=== PATIENT | male | born 1955 | race Two or more races ===

== ENCOUNTER → 2022-12-13 10:41 | Outpatient (REF) | payer OTHER, SELFPAY ==
--- NOTE | 2022-12-13 10:56 | HM_ITS ---
Conclusion: 1. Patient was monitored for total period of 23 hours 2. Baseline was normal sinus rhythm with average heart of 72 beats per minute 3. No significant pauses or bradycardia noted 4. Occasional PVCs with total burden of 0.15% 5. No patient reported events MTDD
== END ==
LOC: HO.CARD 10:41
PROVIDERS: PCP Internal Medicine; Visit Provider Internal Medicine
DX: I44.0 Atrioventricular block, first degree (principal); I49.8 Other specified cardiac arrhythmias
CPT/HCPCS: 93225

== ENCOUNTER 2023-03-05 07:45 | Inpatient (IN) | payer OTHER, SELFPAY ==
--- NOTE | ~2023-03-05 | XR_ITS ---
EXAMINATION: XR ABDOMEN KUB CLINICAL INDICATION: Colon distention COMPARISON: 03/05/2023 CT scan TECHNIQUE: AP view of the abdomen. FINDINGS: The bowel gas pattern is normal with no evidence of ileus or obstruction. No unusual soft tissue calcifications are noted. The bones are unremarkable. XR/XR KUB IMPRESSION: Unremarkable examination.
--- NOTE | ~2023-03-05 | CT_ITS ---
EXAMINATION: CT ABDOMEN AND PELVIS WITHOUT CONTRAST CLINICAL INFORMATION: Abdominal pain. COMPARISON: None available. TECHNIQUE: Multidetector volumetric imaging was performed from the superior aspect of the liver through the pubic symphysis. Sagittal and coronal reformatted images were obtained on the technologist's workstation. This CT examination was performed using dose optimization techniques as appropriate, variously including the following: *Automated exposure control *Adjustment of mA and/or kV according to patient size (this includes techniques or standardized protocols for targeted exams where dose is matched to indication/reason for exam; i.e. extremities or head) *Use of iterative reconstruction technique DLP: 409 mGy-cm FINDINGS: LUNG BASES: Mild bibasilar atelectasis. No pericardial or pleural effusion. LIVER, GALLBLADDER, AND BILIARY TREE: The liver is normal in size, shape, and attenuation. No focal hepatic lesion or biliary ductal dilatation is present. The gallbladder is unremarkable with no evidence of radiopaque gallstones, gallbladder wall thickening, or obvious pericholecystic inflammatory changes. PANCREAS: Unremarkable. No acute inflammatory changes. SPLEEN: Unremarkable. ADRENAL GLANDS: Unremarkable. KIDNEYS AND URETERS: The kidneys are normal in size, shape, and attenuation. No hydronephrosis, hydroureter, or calculi seen. Mild bilateral perinephric stranding. Right renal 1.3 cm cyst. No follow up recommended. BLADDER: Partially distended, appearing unremarkable. GASTROINTESTINAL TRACT: There is prominent wall thickening of the splenic flexure, descending colon. There also appears to be wall thickening or bowel wall prominence related to nondistention of the sigmoid colon extending to the rectosigmoid region. There is inflammatory changes adjacent to the descending colon and to lesser degree associated with the sigmoid colon. Differential considerations include colitis. Mass lesion, neoplasm cannot be excluded. Proximal to the area of large bowel wall thickening, there is dilatation of the ascending colon and transverse colon, which could reflect component of evolving or developing bowel obstruction. No dilated small bowel loops are seen. Stomach is partially distended, limiting evaluation. ABDOMINAL WALL: No significant hernia is appreciated. LYMPH NODES: No bulky lymphadenopathy seen. VASCULAR: Unremarkable. PELVIC VISCERA: Unremarkable. OSSEOUS STRUCTURES: Multilevel degeneration in the spine. CT/CT abdomen pelvis wo IV con IMPRESSION: 1. Prominent wall thickening of the splenic flexure and descending colon. There is wall thickening to lesser degree of the sigmoid colon. Differential considerations include colitis. Neoplastic etiology, especially in the region of the splenic flexure and descending colon cannot be excluded. Clinically correlate. Consider workup/followup endoscopy. If this is not obtained, recommend followup CT to ensure resolution of these findings. 2. There is dilatation of the large colon proximal to the splenic flexure, which could reflect evolving/developing bowel obstruction. Recommend ongoing radiographic followup. Fleischner guidelines were followed.
[2023-03-05 07:50] VITALS: BP 164/103; PULSE 100; RESP 19; TEMP 36.6; O2SAT 99; BMI 25.8
[2023-03-05 08:09] LABS: Basophils Percent Auto 0.1 % (0-2); Eosinophils Percent Auto 0.1 % (0-4); Hematocrit 41.7 % (42.0-52.0); Hemoglobin 13.5 g/dl (14.0-18.0); Imm Gran Abs Auto 0.07 X10*3/uL (0.00-0.03); Imm Gran Pct Auto 0.4 % (0.0-0.4); Lymphocytes Absolute Auto 1.4 X10*3/uL (1.2-4.9); Lymphocytes Percent Auto 8.3 % (20-40); MANUAL DIFF FLAG SCAN; Mean Corpuscular HGB Conc 32.4 g/dl (31.0-36.0); Mean Corpuscular Hemoglobin 24.7 pg (27.0-33.0); Mean Corpuscular Volume 76.4 fL (80.0-98.0); Mean Platelet Volume 10.2 fL (9.4-12.4); Monocytes Absolute Auto 1.7 X10*3/uL (0.1-1.2); Monocytes Percent Auto 9.9 % (2-11); Neutrophils Percent Auto 81.2 % (45-73); Platelet Count 239 X10*3/uL (160-400); Red Blood Count 5.46 X10*6/uL (4.60-5.80); Red Cell Distribution Width 14.8 % (11.0-16.0); SCAN SMEAR FLAG 1; White Blood Count 17.3 X10*3/uL (4.8-10.8)
--- NOTE | 2023-03-05 08:17 | ECG_ITS ---
Test Reason : CHEST DISCOMFORT Blood Pressure : / mmHG Vent. Rate : 093 BPM Atrial Rate : 093 BPM P-R Int : 166 ms QRS Dur : 090 ms QT Int : 348 ms P-R-T Axes : 074 071 050 degrees QTc Int : 432 ms Normal sinus rhythm Normal ECG No significant changes when compared with the previous EKG of 19 jun 2003 Referred By: Екатерина Mehta Electronically Signed By:SAVITA MONROY
--- NOTE | 2023-03-05 08:25 | PC.NURSE ---
pt to ct scan, labs previously drawn in triage
[2023-03-05 08:29] LABS: SLIDE REVIEW VERIFIED
[2023-03-05 08:31] LABS: Alanine Aminotransferase 40 U/L (0-40); Albumin Level 4.5 g/dL (3.5-5.0); Alkaline Phosphatase 46 U/L (39-117); Anion Gap 15 (12-20); Aspartate Amino Transferase 28 U/L (5-37); Bilirubin Direct 0.2 mg/dL (0.0-0.5); Bilirubin Total 0.8 mg/dL (0.0-1.0); Blood Urea Nitrogen 16 mg/dL (9-16); Calcium 9.7 mg/dL (8.4-10.2); Carbon Dioxide 22 mmol/L (22-29); Chloride 106 mmol/L (96-108); Creatinine Clr Calc Pharmacy 60.5; Estimated Glomerular Filt Rate > 60; Glucose Random 147 mg/dL (60-115); Lipase 9 U/L (8-78); Potassium 3.3 mmol/L (3.3-5.1); Sodium 140 mmol/L (135-145); Total Protein 8.1 g/dL (6.5-8.0)
--- NOTE | 2023-03-05 08:40 | ED.ABDPAIN ---
HPI - Abdominal Pain General Chief Complaint: Abdominal Pain Stated Complaint: abd pain Time Seen by Provider: 03/05/23 08:17 Source: patient Mode of arrival: ambulatory History of Present Illness HPI narrative: 67-year-old male who arrives with persistent and worsening pain in the abdomen since yesterday at approximately 14:00 with nausea but denies any vomiting, states he has been passing gas him when he has a bowel movement that is just watery. He reports subjective fevers and diaphoresis and states he last urinated this morning. Related Data Allergies Allergy/AdvReac Type Severity Reaction Status Date / Time penicillin V Allergy Unknown Unknown Verified 03/05/23 07:49 Penicillins [PENICILLINS] Allergy Unknown UNKNOWN Verified 03/05/23 07:49 REACTION, CHILDHOOD ALLERGY Review of Systems Review of Systems Pertinent positives and negatives as stated in [facility] Past Medical History Source: nursing notes reviewed Medical History (Updated 03/05/23 @ 10:21 by Екатерина Mehta MD) High cholesterol Hypertension Social History Social History Alcohol intake: current Alcohol intake frequency: holidays/special occasions only Alcohol type: beer and hard liquor Smoked in Last 30 Days: Yes Use of substances other than those prescribed or required for medical reasons: Yes Substance Use Type: Marijuana Substance Use Frequency: Occasionally Advance Directives: No Advance Directives Information Provided: Yes Physical Exam ED Vital Signs: Vital Signs - 24 hr 03/05/23 07:50 Temperature 98 F Pulse Rate 100 Respiratory Rate 19 Blood Pressure 164/103 H Pulse Oximetry 99 Oxygen Delivery Method Room Air BMI result Body Mass Index 25.8 VITAL SIGNS: Reviewed. GENERAL: Well developed, well nourished, in no acute distress. HEAD: Normocephalic/atraumatic EYES: PERRLA, EOMI EARS: Ext canals without abnormality NOSE: Nares patent bilateral OROPHARYNX: no oral lesions noted, posterior pharynx clear NECK: Supple, no adenopathy LUNGS: Normal breath sounds. No adventitious sounds or accessory muscle use. SpO2<99> CARDIOVASCULAR: Regular rate and rhythm without noted murmurs ABDOMEN: Soft, diffusely tender, distended with hypoactive bowel sounds. MUSCULOSKELETAL: No tenderness, deformities, or effusions noted on gross inspection. EXTREMITIES: No cyanosis, clubbing or edema. SKIN: Inspection of the skin reveals no rashes NEUROLOGIC: Alert and oriented x 4. Strength and sensation to light touch were grossly intact x 4. Medical Decision Making Medical Decision Making [facility] Narrative: 0815: 67-year-old male who arrives with concerns of SBO, diverticulitis, perforation. Patient did receive lactic acid/blood culture/antibiotics After review of all investigations and imaging studies patient will be admitted with presumptive colitis but there is some concern for possible pathology at the splenic flexure, I did discuss the case with Gastroenterology, I also discussed case with inpatient hospitalist who accepts admission. Patient has received antibiotics, pain medications as well as mild fluid hydration. Differential Diagnosis Please see the discussion above Consult Healthcare Provider Management of the patient was discussed with: Hospitalist and Blending Coordinator Lab Data Please see the discussion above 03/05/23 07:57 03/05/23 07:57 Labs: Lab Results 03/05/23 03/05/23 03/05/23 Range/Units 07:57 07:57 09:04 WBC 17.3 H (4.8-10.8) X10*3/uL RBC 5.46 (4.60-5.80) X10*6/uL Hgb 13.5 L (14.0-18.0) g/dl Hct 41.7 L (42.0-52.0) % MCV 76.4 L (80.0-98.0) fL MCH 24.7 L (27.0-33.0) pg MCHC 32.4 (31.0-36.0) g/dl RDW 14.8 (11.0-16.0) % Plt Count 239 (160-400) X10*3/uL MPV 10.2 (9.4-12.4) fL Immature Gran % (Auto) 0.4 (0.0-0.4) % Neut % (Auto) 81.2 H (45-73) % Lymph % (Auto) 8.3 L (20-40) % [place] % (Auto) 9.9 (2-11) % Eos % (Auto) 0.1 (0-4) % Baso % (Auto) 0.1 (0-2) % Lymph # (Auto) 1.4 (1.2-4.9) X10*3/uL [place] # (Auto) 1.7 H (0.1-1.2) X10*3/uL Eos # (Auto) 0.0 (0.0-0.4) X10*3/uL Baso # (Auto) 0.0 (0.0-0.2) X10*3/uL Abs Immat Gran (auto) 0.07 H (0.00-0.03) X10*3/uL Absolute Neuts (auto) 14.0 H (2.0-8.3) x10*3/uL Absolute Nucleated RBC 0.000 (0.0-0.012) X10*3/uL Nucleated RBC % (auto) 0.0 (0.0-0.2) /100WBC Smear Tech's Comments VERIFIED Sodium 140 (135-145) mmol/L Potassium 3.3 (3.3-5.1) mmol/L Chloride 106 (96-108) mmol/L Carbon Dioxide 22 (22-29) mmol/L Anion Gap 15 (12-20) BUN 16 (9-16) mg/dL Creatinine 1.03 (0.5-1.4) mg/dL Estim Creat Clear Calc 60.5 Estimated GFR > 60 Random Glucose 147 H (60-115) mg/dL Lactic Acid 1.1 (0.5-2.0) mmol/L Calcium 9.7 (8.4-10.2) mg/dL Total Bilirubin 0.8 (0.0-1.0) mg/dL Direct Bilirubin 0.2 (0.0-0.5) mg/dL AST 28 (5-37) U/L ALT 40 (0-40) U/L Alkaline Phosphatase 46 (39-117) U/L Troponin I High Sens (<3.5-35.0) ng/L Total Protein 8.1 H (6.5-8.0) g/dL Albumin 4.5 (3.5-5.0) g/dL Lipase 9 (8-78) U/L 03/05/23 Range/Units 09:06 WBC (4.8-10.8) X10*3/uL RBC (4.60-5.80) X10*6/uL Hgb (14.0-18.0) g/dl Hct (42.0-52.0) % MCV (80.0-98.0) fL MCH (27.0-33.0) pg MCHC (31.0-36.0) g/dl RDW (11.0-16.0) % Plt Count (160-400) X10*3/uL MPV (9.4-12.4) fL Immature Gran % (Auto) (0.0-0.4) % Neut % (Auto) (45-73) % Lymph % (Auto) (20-40) % [place] % (Auto) (2-11) % Eos % (Auto) (0-4) % Baso % (Auto) (0-2) % Lymph # (Auto) (1.2-4.9) X10*3/uL [place] # (Auto) (0.1-1.2) X10*3/uL Eos # (Auto) (0.0-0.4) X10*3/uL Baso # (Auto) (0.0-0.2) X10*3/uL Abs Immat Gran (auto) (0.00-0.03) X10*3/uL Absolute Neuts (auto) (2.0-8.3) x10*3/uL Absolute Nucleated RBC (0.0-0.012) X10*3/uL Nucleated RBC % (auto) (0.0-0.2) /100WBC Smear Tech's Comments Sodium (135-145) mmol/L Potassium (3.3-5.1) mmol/L Chloride (96-108) mmol/L Carbon Dioxide (22-29) mmol/L Anion Gap (12-20) BUN (9-16) mg/dL Creatinine (0.5-1.4) mg/dL Estim Creat Clear Calc Estimated GFR Random Glucose (60-115) mg/dL Lactic Acid (0.5-2.0) mmol/L Calcium (8.4-10.2) mg/dL Total Bilirubin (0.0-1.0) mg/dL Direct Bilirubin (0.0-0.5) mg/dL AST (5-37) U/L ALT (0-40) U/L Alkaline Phosphatase (39-117) U/L Troponin I High Sens < 2.7 (<3.5-35.0) ng/L Total Protein (6.5-8.0) g/dL Albumin (3.5-5.0) g/dL Lipase (8-78) U/L Independent Interpretation I performed an independent interpretation of an: EKG Interpretation: Normal sinus rhythm, HR-93, no STEMI, CT/QRS/QTC is within normal limits. Radiology Impression Radiologist Impression: My interpretation is in agreement with radiology's impression Medications Administered Discontinued Medications Generic Name Dose Route Start Last Admin Trade Name Freq PRN Reason Stop Dose Admin Fentanyl 25 mcg 03/05/23 09:01 03/05/23 09:27 Fentanyl Citrate/Pf 100 Mcg/2 Ml Vial IVPUSH 03/05/23 09:02 25 mcg ONCE ONE Administration Protocol Ceftriaxone Sodium 1 gm/ 50 mls @ 100 mls/hr 03/05/23 08:38 03/05/23 09:58 Sodium Chloride IV 03/05/23 09:07 Infused ONCE ONE Infusion Sodium Chloride 500 mls @ 500 mls/hr 03/05/23 09:15 03/05/23 09:27 Ns IV 03/05/23 10:14 500 mls/hr .Q1H LEONIDES Administration Discharge Plan Discharge Clinical Impression: Colitis, Sepsis Patient Disposition: Admitted As Inpatient
[2023-03-05 09:24] LABS: Lactic Acid 1.1 mmol/L (0.5-2.0)
[2023-03-05] MEDS: 0.9 % Sodium Chloride 500 ML IV (09:27)
[2023-03-05] MEDS: fentaNYL citrate/PF 100 MCG/2 ML VIAL 25 MCG IVPUSH (09:27)
[2023-03-05] MEDS: cefTRIAXone sodium 1 GM in 0.9 % Sodium Chloride 50 ML IV (09:28)
[2023-03-05 09:55] LABS: Troponin-I High Sensitivity < 2.7 ng/L (<3.5-35.0)
--- NOTE | 2023-03-05 09:58 | PC.NURSE ---
patient a&ox3, iv inserted, labs drawn, ekg performed-nsr, vss, ivf hung per order, pt medicated per order, abd distended-painful upon palpation, + hypoactive bs, pt states his pain has decreased to 6/10 after being medicated for pain, call regalado within reach, pt npo, will continue to monitor.
[2023-03-05 10:00] VITALS: BP 154/95; PULSE 90; RESP 18; TEMP 36.4; O2SAT 98
[2023-03-05] MEDS: metroNIDAZOLE/NS 500 MG/100 ML PIGGYBACK 100 MG IV ×2 (10:29→19:52)
--- NOTE | 2023-03-05 10:29 | PC.NURSE ---
patient a&ox3, pt stating his abd pain has increased to 8/10, vss, iv abx running per order, will continue to monitor.
--- NOTE | 2023-03-05 11:03 | PM.GICN ---
History of Present Illness Data of Consult Service Date: 03/05/23 Requesting physician: Екатерина Mehta Primary Care Provider: Patricia Chance MD [facility] Reason for consult: abdominal pain, abnormal CT scan of the colon 67 YM with hypertension and hypercholesterolaemia came to [facility] ED on 03/05/2023 with one day history of worsening abdominal pain. Pt reports he had no pain when he woke up. He took a shower and ate something. He noted abdominal pain at approximately 14:00 (? precipitated by eating) Pain is associated with subjective fevers, sweating, nausea and vomiting. Pt states he has been passing gas and has been having multiple small watery and non-bloody bowel movements. Pt denies recent travel or antibiotic use. Pt denies smoking and drinks ETOH once a week. He is and lives with his and has 2 adult children. 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 LABS showed elevated WBC of 17.3 with a left shift, normal LFTs, lipase and lactic acid. Pt was started on IV antibiotics and admitted for further management. Stool studies ordered for C Diff and GI panel. Pt denies known family hx of IBD or colon cancer 03/05/[address] SCAN SHOWED: 1. Prominent wall thickening of the splenic flexure and descending colon. There is wall thickening to lesser degree of the sigmoid colon. Differential considerations include colitis. Neoplastic etiology, especially in the region of the splenic flexure and descending colon cannot be excluded. Clinically correlate. Consider workup/followup endoscopy. If this is not obtained, recommend followup CT to ensure resolution of these findings. ? 2. There is dilatation of the large colon proximal to the splenic flexure, which could reflect evolving/developing bowel obstruction. Recommend ongoing radiographic followup. ? PAST GI HISTORY BY REVIEW OF MEDICAL RECORDS: Pt has a history of malignant rectal polyp excised transanally in 2016. He had re-excision for wider margins thereafter. He had FU colonoscopies in [address] Syed which were unremarkable. Review of Systems Review of Systems: Pertinent positives and negatives as stated in HPI [facility] Past Medical History Medical History (Updated 03/14/23 @ 00:07 by Pb Daroberta) High cholesterol Hypertension Lump of scalp Social History Social History Household Members: Other Household Members Other:: nephew Housing: Apartment Do you presently have visiting nurse or other home services: No Alcohol intake: current Alcohol intake frequency: holidays/special occasions only Alcohol type: beer and hard liquor Patient Tobacco Use Status: Current someday Tobacco user Tobacco use type: Cigarette Cigarette Packs Per Day: 0 Cigarettes Per Day: 0 Years Smoked: 50 Second Hand Smoke Exposure: No Substance Use Type: Marijuana service: No Meds Allergies Allergy/AdvReac Type Severity Reaction Status Date / Time penicillin V Allergy Unknown Unknown Verified 03/05/23 07:49 Penicillins [PENICILLINS] Allergy Unknown UNKNOWN Verified 03/05/23 07:49 REACTION, CHILDHOOD ALLERGY Active Medications: Current Medications Pharmacy Consult (Consult Rx Perform Med Rec) 1 each MISCELLANE ONCE PRN PRN Reason: Consult order Home Medications Medication Instructions Recorded Confirmed Last Taken Type ergocalciferol (vitamin D2) 1,250 1,250 mcg PO THEODORE@0900 03/05/23 03/05/23 02/26/23 History mcg (50,000 unit) capsule hydrochlorothiazide 12.5 mg capsule 12.5 mg PO DAILY 03/05/23 03/05/23 03/05/23 History loratadine 10 mg tablet (Claritin) 10 mg PO DAILY PRN Allergy Symptoms 03/05/23 03/05/23 Unknown History rosuvastatin 20 mg tablet 20 mg PO BEDTIME 03/05/23 03/05/23 03/02/23 History Physical Exam Vital Signs: Vital Signs: Last Vital Signs Temp 97.6 F 03/05/23 10:00 Pulse 90 03/05/23 10:00 Resp 18 03/05/23 10:00 BP 154/95 H 03/05/23 10:00 Pulse Ox 98 03/05/23 10:00 O2 Del Method Room Air 03/05/23 10:00 BMI result Body Mass Index 25.8 Const: General: no acute distress and in distress (due to abdominal pain) Nutritional Appearance: overweight Orientation/consciousness: patient oriented x3 Limitations: no limitations HEENT: Head: Yes normal to inspection Ears: hearing grossly normal bilaterally Eyes: Sclerae: sclerae normal Pupils: Equal, round and reactive pupils present Neck: Neck: Yes normal visual inspection Chest: Chest palpation & inspection: normal inspection of the chest Resp: Effort & Inspection: normal respiratory effort Auscultation: clear to auscultation bilaterally Cardio: Palpation: normal PMI Rate: regular rate Rhythm: regular rhythm Heart sounds: S1 normal heart sound present, S2 normal heart sound present and no murmurs GI: Inspection: Yes distended Palpation (GI): Soft to palpation, Tenderness to palpation present (GI) (moderate diffuse abdominal tenderness) and No hepatosplenomegaly present Auscultation: normal bowel sounds Rectal Exam - Male: Yes deferred Skin: General skin exam: no rashes or lesions noted Neuro: General: patient oriented x3, gait normal and moves all extremities Cranial nerves: Yes Equal, round and reactive pupils present Psych: Appearance: grossly normal Mental Status: mental status grossly normal Results Labs 03/05/23 07:57 03/05/23 07:57 Labs: Short CBC 03/05/23 Range/Units 07:57 WBC 17.3 H (4.8-10.8) X10*3/uL Hgb 13.5 L (14.0-18.0) g/dl Hct 41.7 L (42.0-52.0) % Plt Count 239 (160-400) X10*3/uL BMP 03/05/23 07:57 Sodium 140 Potassium 3.3 Chloride 106 Carbon Dioxide 22 BUN 16 Creatinine 1.03 Calcium 9.7 Liver Function 03/05/23 Range/Units 07:57 Total Bilirubin 0.8 (0.0-1.0) mg/dL Direct Bilirubin 0.2 (0.0-0.5) mg/dL AST 28 (5-37) U/L ALT 40 (0-40) U/L Alkaline Phosphatase 46 (39-117) U/L Albumin 4.5 (3.5-5.0) g/dL Assessment and Plan (1) Colitis: Status: Resolved (2) Abnormal CT scan, colon: Status: Acute Plan 67 YM with hypertension, hypercholesterolaemia and a hx of rectal cancer admitted to [facility] on 03/05/2023 with one day history of worsening abdominal pain, nausea, vomiting and diarrhea. Pt states he has been passing gas and has been having multiple small watery and non-bloody bowel movements. Pt denies recent travel or antibiotic use. LABS showed elevated WBC of 17.3 with a left shift, normal LFTs, lipase and lactic acid. Pt was started on IV antibiotics and admitted for further management. Stool studies ordered for C Diff and GI panel. Abdominal CT scan showed prominent wall thickening of the splenic flexure, descending and sigmoid colon and dilatation of the large colon proximal to the splenic flexure, Above findings are likely due to infectious or ischemic colitis. IBD or colon cancer would be unlikely given acute onset of symptoms and negative colonoscopy 4 yrs ago. RECOMMENDATIONS: 1. Agree with keeping pt NPO with IVF and pain medications 2. Await results of stool studies. 3. KUB in the am to FU on colon distension 4. If pt has increased distension with recurrent nausea and vomiting, NG tube with intermittent low wall suction. Time Spent With Patient Time: Total time managing care of this patient today ____ minutes. Procedures Date of Service Date of Service: 03/23/23
--- NOTE | 2023-03-05 11:36 | PHA.MEDREC ---
Pharmacy Consult ? Medication Reconciliation Pharmacy has completed the medication reconciliation. Spoke to the patient to confirm meds. Utilized tile m[employer] services.
--- NOTE | 2023-03-05 13:41 | P.HPHOSP_ITS ---
History of Present Illness Date of Service: 03/05/23 Chief Complaint: abdominal pain. 67-year-old gentleman with past medical history significant for malignant rectal polyp , history of hypertension, hyperlipidemia came to [place] ED with 1 day history of worsening mid abdominal pain associated with nausea vomiting, subjective fevers, and small watery diarrhea, patient denies recent travels, no recent antibiotic use, no family member with similar symptoms, CT abdomen showed prominent wall thickening of the splenic flexure and descending colon differential included colitis,? neoplastic etiology in the region of splenic flexure and descending colon, dilatation of the large colon proximal to the splenic flexure which could reflect evolving or developing bowel obstruction, labs showed elevated WBC 17.3 with left shift, normal LFTs, normal lactic acid and lipase patient treated in the emergency room with IV fluids, IV ceftriaxone and Flagyl and now being admitted to [facility] with a diagnosis of abdominal pain likely infectious or ischemic colitis requiring Further evaluation and treatment. Review of Systems Review of Systems: General no headache no dizziness CVS no chest pain, no palpitation. Respiratory no cough no sob no urinary urgency, no frequency skin no rash musculoskeletal no joint pain PMFSH Medical History High cholesterol Hypertension Pertinent family history: no family history of colon cancer Social History Alcohol intake: current Alcohol intake frequency: holidays/special occasions only Alcohol type: beer and hard liquor Patient Tobacco Use Status: Never used Tobacco Smoked in Last 30 Days: Yes Use of substances other than those prescribed or required for medical reasons: Yes Substance Use Type: Marijuana Substance Use Frequency: Occasionally Advance Directives: No Advance Directives Information Provided: Yes Nutrition Risks: No Nutritional Risk Meds Allergies Allergy/AdvReac Type Severity Reaction Status Date / Time penicillin V Allergy Unknown Unknown Verified 03/05/23 07:49 Penicillins [PENICILLINS] Allergy Unknown UNKNOWN Verified 03/05/23 07:49 REACTION, CHILDHOOD ALLERGY Active Medications: Current Medications Loratadine (Loratadine 10 Mg Tablet) 10 mg PO DAILY PRN PRN Reason: Allergy Symptoms Pharmacy Consult (Consult Rx Perform Med Rec) 1 each MISCELLANE ONCE PRN PRN Reason: Consult order Home Medications Medication Instructions Recorded Confirmed Last Taken Type ergocalciferol (vitamin D2) 1,250 1,250 mcg PO THEODORE@0900 03/05/23 03/05/2308/10 History mcg (50,000 unit) capsule hydrochlorothiazide 12.5 mg capsule 12.5 mg PO DAILY 03/05/23 03/05/23 03/05/23 History loratadine 10 mg tablet (Claritin) 10 mg PO DAILY PRN Allergy Symptoms 03/05/23 03/05/23 Unknown History rosuvastatin 20 mg tablet 20 mg PO BEDTIME 03/05/23 03/05/23 03/02/23 History Physical Exam Vital Signs and Narrative: Vital Signs: Last Vital Signs Temp 97.6 F 03/05/23 10:00 Pulse 90 03/05/23 10:00 Resp 18 03/05/23 10:00 BP 154/95 H 03/05/23 10:00 Pulse Ox 98 03/05/23 10:00 O2 Del Method Room Air 03/05/23 10:00 BMI result Body Mass Index 25.8 Const: Other: General awake alert x3 in mild distress due to acute pain. anicteric sclera Neck supple no JVD. CVS regular rate rhythm, Respiratory lungs clear to auscultation, no respiratory distress, no wheeze, no rhonchi. Gastrointestinal abdomen soft, diffuse mid abdominal tenderness to palpation, bowel sounds audible, no guarding , no rigidity. Extremities no edema. Neuro nonfocal ,moving all 4 extremity speech clear. Skin no rash psych appropriate affect Results Labs 03/05/23 07:57 03/05/23 07:57 Labs: Laboratory Results - last 24 hr 03/05/23 03/05/23 03/05/23 07:57 07:57 09:04 MCV 76.4 L MCH 24.7 L MCHC 32.4 RDW 14.8 Plt Count 239 MPV 10.2 Immature Gran % (Auto) 0.4 Neut % (Auto) 81.2 H Lymph % (Auto) 8.3 L [place] % (Auto) 9.9 Eos % (Auto) 0.1 Baso % (Auto) 0.1 Lymph # (Auto) 1.4 [place] # (Auto) 1.7 H Eos # (Auto) 0.0 Baso # (Auto) 0.0 Abs Immat Gran (auto) 0.07 H Absolute Neuts (auto) 14.0 H Absolute Nucleated RBC 0.000 Nucleated RBC % (auto) 0.0 Smear Tech's Comments VERIFIED Anion Gap 15 Estim Creat Clear Calc 60.5 Estimated GFR > 60 Random Glucose 147 H Lactic Acid 1.1 Calcium 9.7 Total Bilirubin 0.8 Direct Bilirubin 0.2 AST 28 ALT 40 Alkaline Phosphatase 46 Troponin I High Sens Total Protein 8.1 H Albumin 4.5 Lipase 9 03/05/23 09:06 MCV MCH MCHC RDW Plt Count MPV Immature Gran % (Auto) Neut % (Auto) Lymph % (Auto) [place] % (Auto) Eos % (Auto) Baso % (Auto) Lymph # (Auto) [place] # (Auto) Eos # (Auto) Baso # (Auto) Abs Immat Gran (auto) Absolute Neuts (auto) Absolute Nucleated RBC Nucleated RBC % (auto) Smear Tech's Comments Anion Gap Estim Creat Clear Calc Estimated GFR Random Glucose Lactic Acid Calcium Total Bilirubin Direct Bilirubin AST ALT Alkaline Phosphatase Troponin I High Sens < 2.7 Total Protein Albumin Lipase Imaging Radiologist's Impressions: Impressions Abdomen/Pelvis CT 03/05/23 08:45 IMPRESSION: 1. Prominent wall thickening of the splenic flexure and descending colon. There is wall thickening to lesser degree of the sigmoid colon. Differential considerations include colitis. Neoplastic etiology, especially in the region of the splenic flexure and descending colon cannot be excluded. Clinically correlate. Consider workup/followup endoscopy. If this is not obtained, recommend followup CT to ensure resolution of these findings. 2. There is dilatation of the large colon proximal to the splenic flexure, which could reflect evolving/developing bowel obstruction. Recommend ongoing radiographic followup. Fleischner guidelines were followed. Assessment and Plan (1) Colitis: Status: Acute Plan 67-year-old gentleman with past medical history significant for malignant rectal polyp , history of hypertension, hyperlipidemia came to [place] ED with 1 day history of worsening mid abdominal pain associated with nausea vomiting, subjective fevers, and small watery diarrhea, noted to have tachycardia leukocytosis and possible colitis now being admitted to [facility] for continued monitoring and treatment. sepsis due to acute colitis likely infectious versus ischemic with diffuse mid abdominal pain admitted to medical floor , pulp drier.o./IV fluid/ IV ceftriaxone and IV Flagyl 500 q.8 hours IV analgesics/supportive care follow C diff and GI panel case discussed with powder press operator Dr. Camp if no improvement will obtain KUB at a.m. hypertension hold hydrochlorothiazide follow blood pressure hyperlipidemia on Crestor non formulary will hold DVT prophylaxis compression boots code status full code in my clinical judgment patient will require to need inpatient hospitalization due to acute colitis with concern for small-bowel obstruction on IV antibiotics and IV fluids need expert consultation. Time Spent With Patient Time: Total time managing care of this patient today ____ minutes. Quality Stroke Does the patient have a stroke diagnosis?: No VTE Prior VTE?: No VTE Risk Level:: Medical - moderate - high VTE Device Contraindication: Treatment Not Indicated VTE Drug Contraindication: N/A - Med Ordered
--- NOTE | 2023-03-05 13:57 | PC.NURSE ---
messaged Dr. Whitehead to obtain order for pain medication for patient as he continues to have 8./10 abd pain.
[2023-03-05 15:06] VITALS: BP 161/92; PULSE 96; RESP 18; TEMP 36.7; O2SAT 96
--- NOTE | 2023-03-05 15:07 | PC.NURSE ---
report given to floor
[2023-03-05 15:50] VITALS: BP 150/70; PULSE 96; RESP 18; TEMP 36.5; O2SAT 95
[2023-03-05] MEDS: 0.9 % Sodium Chloride Flush 3 ML SYRINGE IVFLUSH (15:52)
[2023-03-05] MEDS: KCl 20 mEq in 0.9 % Sodium ChL 20 MEQ/1,000 ML IV.SOLN 100 MEQ IVCONT (16:58)
[2023-03-05 23:43] VITALS: BP 135/65; PULSE 73; RESP 18; TEMP 35.9; O2SAT 95
[2023-03-06] MEDS: KCl 20 mEq in 0.9 % Sodium ChL 20 MEQ/1,000 ML IV.SOLN 100 MEQ IVCONT ×2 (03:22→12:02)
[2023-03-06] MEDS: metroNIDAZOLE/NS 500 MG/100 ML PIGGYBACK 100 MG IV ×2 (03:24→12:01)
[2023-03-06 04:03] LABS: Appearance Urine Clear; Color Urine Yellow; Glucose Urine UA Negative (Negative); Leukocyte Esterase Urine Small (1+) (Negative); Nitrite Urine Negative (Negative); Specific Gravity - Urine 1.025 (1.005-1.025); UMIC TRIGGER UACC YES; Urine Blood Trace (Negative); Urine Ketones 15 mg/dL (Negative); Urine Protein Trace mg/dL (Neg-Trace)
[2023-03-06 04:08] LABS: Bacteria Urine None Seen (None Seen); Hyaline Casts Urine 0-2 /LPF (0-2); UACC Culture Trigger YES
[2023-03-06 04:48] VITALS: BP 146/70; PULSE 72; RESP 18; TEMP 36.6; O2SAT 97
[2023-03-06 04:52] LABS: CDiff Gene PCR NEGATIVE (Negative)
[2023-03-06 05:21] LABS: Hematocrit 36.2 % (42.0-52.0); Hemoglobin 11.6 g/dl (14.0-18.0); Mean Corpuscular Hemoglobin 24.6 pg (27.0-33.0); Mean Corpuscular Volume 76.7 fL (80.0-98.0); Mean Platelet Volume 10.4 fL (9.4-12.4); Platelet Count 190 X10*3/uL (160-400); Red Blood Count 4.72 X10*6/uL (4.60-5.80); Red Cell Distribution Width 14.8 % (11.0-16.0); White Blood Count 11.7 X10*3/uL (4.8-10.8)
[2023-03-06 05:35] LABS: Anion Gap 14 (12-20); Blood Urea Nitrogen 12 mg/dL (9-16); Calcium 8.6 mg/dL (8.4-10.2); Carbon Dioxide 24 mmol/L (22-29); Chloride 108 mmol/L (96-108); Creatinine Clr Calc Pharmacy 65.6; Estimated Glomerular Filt Rate > 60; Glucose Random 114 mg/dL (60-115); Potassium 3.4 mmol/L (3.3-5.1); Sodium 143 mmol/L (135-145)
[2023-03-06 07:50] VITALS: BP 111/67; PULSE 74; RESP 18; TEMP 36.7; O2SAT 96
[2023-03-06] MEDS: cefTRIAXone sodium 1 GM in 0.9 % Sodium Chloride 50 ML IV (10:28)
--- NOTE | 2023-03-06 11:24 | MHC.CM.PN ---
pt lives w/nephew had no previous servceis his car in parking lot plan home no servceis
--- NOTE | 2023-03-06 13:20 | P.DS_ITS ---
DS: Providers Provider Date of Service: 03/06/23 Date of admission: 03/05/23 13:39 Primary care physician: Patricia Chance MD Consults: 03/05/23 09:37 Consult to Gastroenterology Stat Consulting Provider: Alfie Camp Reason for consultation: ?splenic flexure pathology DS: Diagnosis Discharge Diagnosis (1) Colitis: Status: Acute DS: Summary Hospital Course Hospital Course: history of presenting illness: Date of Service: 03/05/23 Chief Complaint:? abdominal pain. 67-year-old gentleman with past medical history significant for? malignant rectal polyp ,? history of hypertension, hyperlipidemia came to [place] ED with 1 day history of worsening mid abdominal pain associated with nausea vomiting, subjective fevers,? and small watery diarrhea, patient denies recent travels, no recent antibiotic use, no family member with similar symptoms,? CT abdomen showed prominent wall thickening of the splenic flexure and descending colon differential included colitis,? neoplastic etiology in the region of splenic flexure and descending colon, dilatation of the large colon proximal to the splenic flexure which could reflect evolving or developing bowel obstruction, labs showed elevated WBC 17.3 with left shift, normal LFTs, normal lactic acid and lipase patient treated in the emergency room with IV fluids, IV ceftriaxone and Flagyl and now being admitted to [facility] with a diagnosis of abdominal pain likely infectious or ischemic colitis requiring ? Further evaluation and treatment. hospital course: ?67-year-old gentleman with past medical history significant for? malignant rectal polyp ,? history of hypertension, hyperlipidemia came to [place] ED with 1 day history of worsening mid abdominal pain associated with nausea vomiting, subjective fevers,? and small watery diarrhea, noted to have tachycardia leukocytosis and possible colitis now being admitted to [facility] for continued monitoring and treatment. ? sepsis due to acute colitis : all symptoms of sepsis resolved. presented with abdominal pain nausea vomiting and watery stools noted to have leukocytosis and tacking admitted with colitis likely infectious patient treated with IV fluids, IV Flagyl and IV ceftriaxone and bowel rest symptoms improved rapidly, KUB this morning is unremarkable, patient tolerated diet and wishes to be discharged home and admits of having recurrent constipation that he relates to statins, since patient is asymptomatic with no abdominal pain, no nausea, no vomiting, no diarrhea, tolerating diet WBC normalized, will discharge him home on total 5 days, of antibiotic and recommend to take Metamucil and to have follow-up with Dr. Camp from Gastroenterology or Dr. Syed from general surgery for colonoscopy due to prior history of rectal adeno carcinoma. C diff negative. ? ?hypertension? continue hydrochlorothiazide and follow blood pressure. ?hyperlipidemia? continue Crestor. Time Spent with Patient Time attestation: Total time managing care of this patient today ____ minutes. Discharge coordination time: Greater than 30 minutes Quality: Safe Use of Opioids Does Pt have an Active Cancer Diagnosis on the Problem List?: No Quality: Stroke Does the patient have a stroke diagnosis?: No Physical Exam Vital Signs: Vital Signs: Last Vital Signs Temp 98.0 F 03/06/23 07:50 Pulse 74 03/06/23 07:50 Resp 18 03/06/23 07:50 BP 111/67 03/06/23 07:50 Pulse Ox 96 03/06/23 07:50 O2 Del Method Room Air 03/06/23 07:50 BMI result Body Mass Index 25.8 Const: Other: General? awake alert x3 in mild distress due to acute pain.? anicteric sclera Neck? supple no JVD. CVS? regular rate rhythm, Respiratory lungs clear to auscultation, no respiratory distress, no wheeze, no rhonchi. Gastrointestinal abdomen soft,?no tenderness to palpation, bowel sounds audible, no guarding , no rigidity. Extremities no edema. Neuro nonfocal ,moving all 4 extremity speech clear. Skin no rash psych appropriate affect DS: Data Data Completed and Pending Labs on day of discharge: Laboratory Results - last 24 hr 03/06/23 03/06/23 03/06/23 03:38 03:38 05:11 WBC 11.7 H RBC 4.72 Hgb 11.6 L Hct 36.2 L MCV 76.7 L MCH 24.6 L MCHC 32.0 RDW 14.8 Plt Count 190 MPV 10.4 Absolute Nucleated RBC 0.000 Nucleated RBC % (auto) 0.0 Sodium Potassium Chloride Carbon Dioxide Anion Gap BUN Creatinine Estim Creat Clear Calc Estimated GFR Random Glucose Calcium Urine Color Yellow Urine Appearance Clear Urine pH 6.0 Ur Specific [place] 1.025 Urine Protein Trace Urine Glucose (UA) Negative Urine Ketones 15 Urine Blood Trace H Urine Nitrite Negative Ur Leukocyte Esterase Small (1+) H Urine RBC 11-20 H Urine WBC 6-10 H Ur Squamous Epith Cells 3-5 Urine Bacteria None Seen Hyaline Casts 0-2 C. difficile Tox B Gene NEGATIVE 03/06/23 05:11 WBC RBC Hgb Hct MCV MCH MCHC RDW Plt Count MPV Absolute Nucleated RBC Nucleated RBC % (auto) Sodium 143 Potassium 3.4 Chloride 108 Carbon Dioxide 24 Anion Gap 14 BUN 12 Creatinine 0.95 Estim Creat Clear Calc 65.6 Estimated GFR > 60 Random Glucose 114 Calcium 8.6 D Urine Color Urine Appearance Urine pH Ur Specific [place] Urine Protein Urine Glucose (UA) Urine Ketones Urine Blood Urine Nitrite Ur Leukocyte Esterase Urine RBC Urine WBC Ur Squamous Epith Cells Urine Bacteria Hyaline Casts C. difficile Tox B Gene Preliminary micro results at discharge 03/05/23 09:06 Blood Culture - Preliminary Blood - Venous No growth after 24 hours. 03/05/23 09:06 Blood Culture - Preliminary Blood - Venous No growth after 24 hours. Discharge Plan Discharge Anticipated Discharge Date/Time: 03/06/23 13:14 Patient Disposition: Home, Self-Care Discharge Diagnosis: Acute Colitis Referrals: Patricia Chance MD [Primary Care Provider] - 1 Week Discharge Medications: New amoxicillin-pot clavulanate 875-125 mg tablet 1 tab PO BID Qty: 8 0RF Alissa-Mucil 3.4 gram/5.4 gram powder 1 tbsp PO DAILY Qty: 283 0RF Rx Instructions: mix into at least 8 oz of water or juice before administering Continued hydrochlorothiazide 12.5 mg capsule 12.5 mg PO DAILY ergocalciferol (vitamin D2) 1,250 mcg (50,000 unit) capsule 1,250 mcg PO THEODORE@0900 loratadine [Claritin] 10 mg Tablet 10 mg PO DAILY PRN (Reason: Allergy Symptoms) rosuvastatin 20 mg tablet 20 mg PO BEDTIME Discharge Orders: Discharge Order (Routine); Ordered 03/06/23 Ordered By: Kayleigh Whitehead Diet: Low fat, low cholesterol Activity on Discharge: As tolerated Stand Alone Forms: Patient Portal Discharge page Care Plan Goals: take by mouth antibiotic 1 tablet twice daily for 4 more days start Metamucil to regularize bowels after 4 days you need follow-up colonoscopy, call Dr. Syed or Dr. Camp from Gastroenterology and schedule colonoscopy Health Concerns: history of rectal adeno carcinoma and constipation recommend COLONOSCOPY as outpatient Plan of Treatment: outpatient follow-up with primary care physician and referral to surgery/Gastroenterology Assessment: as above
--- NOTE | 2023-03-06 13:26 | MHC.CM.PN ---
pt dcd home with no sercveis
[2023-03-06 15:42] VITALS: BP 129/64; PULSE 77; RESP 18; TEMP 36.6; O2SAT 97
== END 2023-03-06 16:06 | disposition home or self-care (01) | DRG 872 ==
LOC: HO.ED 10:21 → HO.EDOVER 13:44 → HO.S3 14:46
PROVIDERS: Admitting Provider Hospitalist; Emergency Provider Student in an Organized Health Care Education/Training Program; PCP Internal Medicine; Visit Provider Hospitalist
DX: A41.9 Sepsis, unspecified organism (principal); A09 Infectious gastroenteritis and colitis, unspecified; E78.00 Pure hypercholesterolemia, unspecified; I10 Essential (primary) hypertension; Z85.048 Personal history of other malignant neoplasm of rectum, rectosigmoid junction, and anus; Z88.0 Allergy status to penicillin; Z79.899 Other long term (current) drug therapy
CPT/HCPCS: 36415; 74018; 74176; 80048; 80076; 81001; 81003; 83605; 83690; 84484; 85025; 85027; 87040; 87086; 87493; 93005; 99221; 99285; J0696; J3010

== ENCOUNTER 2023-07-24 12:40 | Outpatient (AMB) | payer OTHER, SELFPAY ==
--- NOTE | 2023-07-24 12:49 | A.OFFVIS_ITS ---
Intake Vital Signs 07/24/23 12:59 Height 5 ft 5 in Weight 156 lb BMI 26.0 BP 141/78 H Blood Pressure Location Rt brachial Position Sitting Pulse 67 Intake Visit Reasons: Abnormal CT scan of the colon, colitis Intake Note: This patient presents for an assessment for abnormal Ct-scan, colitis. Patient c/o; reports diarrhea. Construction Project Administrator Required: Yes Construction Project Administrator Language: Batch Maker Name: Chelsie Information Interpreted: non-clinical & clinical Accompanied by: Self / Same As Patient Allergies penicillin V Allergy (Unknown, Verified 07/24/23 13:02) Unknown Penicillins [PENICILLINS] Allergy (Unknown, Verified 07/24/23 13:02) UNKNOWN REACTION, CHILDHOOD ALLERGY Medication List - Last Reconciled 07/24/23 by Jordan Syed MD amoxicillin-pot clavulanate 875-125 mg 1 tab PO BID ergocalciferol (vitamin D2) 1,250 mcg PO THEODORE@0900 hydrochlorothiazide 12.5 mg PO DAILY loratadine (Claritin) 10 mg PO DAILY PRN psyllium husk (Alissa-Mucil) 1 tbsp PO DAILY rosuvastatin 20 mg PO BEDTIME HPI Abnormal CT scan of the colon, colitis 2 HPI Details 68-year-old male referred for an abnorma l CT scan of the colon. He went to the ER last February, because of constipation. He had a CAT scan done showing some thickening of the splenic flexure in the left colon suggestive of colitis. He says he has constipation resolved after 1 day. He has not had any GI complaints since that time. He says says he has good bowel movements.. He does have a history of malignant rectal polyp removed with local excision in 2015. He has had multiple colonoscopies thereafter which did not reveal any recurrent lesion. His last colonoscopy was in 2019. He says he feels well overall. His only complaint is that he has left lower back pain as well as chronic neck pain. [facility] Medical History Lump of scalp High cholesterol Hypertension Surgical History Status post excision of lipoma Social History Household Members: Other Household Members Other:: nephew Housing: Apartment Do you presently have visiting nurse or other home services: No Alcohol intake: current Alcohol intake frequency: holidays/special occasions only Alcohol type: beer and hard liquor Patient Tobacco Use Status: Current someday Tobacco user Tobacco use type: Cigarette Cigarette Packs Per Day: 0 Cigarettes Per Day: 0 Years Smoked: 50 Second Hand Smoke Exposure: No Substance Use Type: Marijuana service: No Review of Systems Const Denies chills and Denies fever(s) Card Denies chest pain, Denies dyspnea and Denies dyspnea on exertion Resp Denies cough, Denies dyspnea and Denies dyspnea on exertion GI Denies hematochezia and Denies change in bowel habits Denies hematuria and Denies difficulty urinating Musc Denies back pain and Denies limited range of motion Neuro Denies focal weakness and Denies convulsions Psych Denies depression and Denies mood swings Physical Exam Vital Signs: Last Vital Signs Pulse 67 07/24/23 12:59 BP 141/78 H 07/24/23 12:59 BMI result Body Mass Index 26.0 Const General: comfortable and no acute distress Orientation/consciousness: patient oriented x3 Neck Neck: Yes no lymphadenopathy Resp Auscultation: clear to auscultation bilaterally Cardio Rhythm: regular rhythm GI Palpation (GI): Soft to palpation, nontender and no guarding Neuro General: patient oriented x3 Assessment & Plan Assessment & Plan (1) Abnormal CT scan, colon: Code(s): R93.3 - Abnormal findings on diagnostic imaging of other parts of digestive tract Plan: He had a CAT scan in February, showing some thickening of the left colon and the splenic flexure. He does have a history of malignant rectal polyp in 2016. I told him that it would be best to repeat his colonoscopy. I explained to him the technique of this procedure. I reviewed the risks including but not limited to bleeding and perforation, as well as the benefits and alternatives. He understands and wants to proceed. He says he seems to be doing well overall and denies complaints except for back pain and neck pain. Coding Level of Care Code New Pt Level 3 (92255) Diagnoses Abnormal CT scan, colon R93.3
[2023-07-24 12:59] VITALS: BP 141/78; PULSE 67; BMI 26.0
== END 2023-07-24 13:21 | disposition home or self-care (01) ==
PROVIDERS: PCP Internal Medicine; Visit Provider Surgery
DX: R93.3 Abnormal findings on diagnostic imaging of other parts of digestive tract (principal)
CPT/HCPCS: 99203

== ENCOUNTER → 2023-07-24 12:40 | Outpatient (BNVA) | payer OTHER, SELFPAY | PROVIDERS: PCP Internal Medicine; Visit Provider Surgery | DX: R93.3 Abnormal findings on diagnostic imaging of other parts of digestive tract (principal); Z85.048 Personal history of other malignant neoplasm of rectum, rectosigmoid junction, and anus | CPT/HCPCS: 99202 ==

== ENCOUNTER 2023-08-08 08:40 | Outpatient (REF) | payer OTHER, SELFPAY ==
[2023-08-08 11:39] LABS: Cholesterol 155 mg/dL (<200); HDL Cholesterol 46 mg/dL (>40); LDL Cholesterol Calculated 81 mg/dL (<100); Triglycerides 142 mg/dL (<150)
[2023-08-08 11:40] LABS: Alanine Aminotransferase 220 U/L (0-40); Albumin Level 4.3 g/dL (3.5-5.0); Alkaline Phosphatase 48 U/L (39-117); Aspartate Amino Transferase 144 U/L (5-37); Bilirubin Direct 0.2 mg/dL (0.0-0.5); Bilirubin Total 0.4 mg/dL (0.0-1.0); Total Protein 7.6 g/dL (6.5-8.0)
[2023-08-08 12:10] LABS: Reflex LDLD? No
== END 2023-08-08 08:41 | disposition home or self-care (01) ==
LOC: HO.HHCL 08:40
PROVIDERS: Visit Provider Internal Medicine
DX: I10 Essential (primary) hypertension (principal); E78.5 Hyperlipidemia, unspecified
CPT/HCPCS: 36415; 80061; 80076

== ENCOUNTER 2023-08-17 08:38 | Outpatient (REF) | payer OTHER, SELFPAY ==
[2023-08-17 12:37] LABS: HBS Num1 19.07 mIU/mL (0-7.99); HBc Num1 0.11 S/CO (0.00-0.79); HBsAGNum1 0.27 S/CO (0.00-0.99); HIV AB/AG Nonreactive (Nonreactive); HIV Num 1 0.05 S/CO (0.00-0.99); Hepatitis A Antibody IgM 0.21 Index (0-0.79); Hepatitis B Core Antibody Nonreactive (Nonreactive); Hepatitis B Surface Antigen Negative (Negative); ~HepC Num1 0.17 S/CO (0.00-0.79); ~Hepatitis A Antibody IgM Nonreactive (Nonreactive); ~Hepatitis B Surface Antibody REACTIVE (Nonreactive); ~Hepatitis C Antibody Nonreactive (Nonreactive)
[2023-08-17 12:44] LABS: Alanine Aminotransferase 101 U/L (0-40); Albumin Level 4.4 g/dL (3.5-5.0); Alkaline Phosphatase 54 U/L (39-117); Aspartate Amino Transferase 45 U/L (5-37); Bilirubin Direct 0.1 mg/dL (0.0-0.5); Bilirubin Total 0.3 mg/dL (0.0-1.0); Gamma Glutamyl Transpeptidase 67 U/L (11-51); Total Protein 7.8 g/dL (6.5-8.0)
[2023-08-17 12:48] LABS: TSH reflex Free T4 1.68 uIU/mL (0.32-4.0)
[2023-08-18 15:54] LABS: HCV Log PCR <1.18 NOT DETECTED Log IU/mL (NOT DETECTED); HepC Viral Load <15 NOT DETECTED IU/mL (NOT DETECTED)
[2023-08-18 16:59] LABS: Ceruloplasmin 21 mg/dL (18-36)
== END 2023-08-17 08:39 | disposition home or self-care (01) ==
LOC: HO.HHCL 08:38
PROVIDERS: Visit Provider Internal Medicine
DX: Z11.4 Encounter for screening for human immunodeficiency virus [HIV] (principal); R74.01 Elevation of levels of liver transaminase levels; K63.5 Polyp of colon; K52.9 Noninfective gastroenteritis and colitis, unspecified; I12.9 Hypertensive chronic kidney disease with stage 1 through stage 4 chronic kidney disease, or unspecified chronic kidney disease; N18.9 Chronic kidney disease, unspecified; R73.01 Impaired fasting glucose; E55.9 Vitamin D deficiency, unspecified; E78.00 Pure hypercholesterolemia, unspecified; E78.5 Hyperlipidemia, unspecified
CPT/HCPCS: 36415; 80076; 82390; 82977; 84443; 86704; 86706; 86709; 86803; 87340; 87389; 87522

== ENCOUNTER 2023-08-25 06:22 | Day surgery (SDC) | payer OTHER, SELFPAY ==
[2023-08-14 11:27] VITALS: BMI 25.8
--- NOTE | 2023-08-23 14:01 | P.CONAN_ITS ---
HPI - Anesthesia Eval Consult details Narrative: 68yo M for Colonoscopy with Poss Polypectomy PMFSH Active Problems Active Problems: All Active Problems (Updated 08/14/23 @ 11:17 by Ce Alexandre RN) Abnormal CT scan, colon (Acute) Past Medical History Medical History (Updated 08/14/23 @ 11:17 by Ce Alexandre, RN) Arthritis Colon cancer Lump of scalp High cholesterol Hypertension Surgical History Surgical History (Updated 08/14/23 @ 11:18 by Ce Alexandre RN) H/O colonoscopy Status post excision of lipoma Social History Social History Household Members: Other Household Members Other:: nephew Housing: Apartment Are you a primary neonatal intensive care nurse to a significant other at home: No Do you presently have visiting nurse or other home services: No Alcohol intake: current Alcohol intake frequency: a few times a month Alcohol type: beer and hard liquor Patient Tobacco Use Status: Current someday Tobacco user Tobacco use type: Cigarette Cigarette Packs Per Day: 0 Cigarettes Per Day: 0 Years Smoked: 50 Second Hand Smoke Exposure: No Substance Use Type: Marijuana service: No Meds Allergies Allergy/AdvReac Type Severity Reaction Status Date / Time penicillin V Allergy Unknown Unknown Verified 07/24/23 13:02 Penicillins [PENICILLINS] Allergy Unknown UNKNOWN Verified 07/24/23 13:02 REACTION, CHILDHOOD ALLERGY Home Medications Medication Instructions Recorded Confirmed Last Taken Type ergocalciferol (vitamin D2) 1,250 1,250 mcg PO THEODORE@0900 03/05/23 08/14/23 02/26/23 History mcg (50,000 unit) capsule hydrochlorothiazide 12.5 mg capsule 12.5 mg PO DAILY 03/05/23 08/14/23 03/05/23 History loratadine 10 mg tablet (Claritin) 10 mg PO DAILY PRN Allergy Symptoms 03/05/23 08/14/23 Unknown History Exam Height,Weight and Vital Signs: Height 5 ft 5 in Weight 70.307 kg Assessment and Plan Assessment Anesthesia Assessment: Chart Reviewed
[2023-08-25 06:41] VITALS: BMI 25.4
[2023-08-25 06:46] VITALS: BP 133/75; PULSE 61; RESP 16; TEMP 36.3; O2SAT 96
[2023-08-25] MEDS: Lactated Ringers 1,000 ML 100 ML IVCONT (07:01)
--- NOTE | 2023-08-25 07:25 | MHC.SHP ---
Pre-Procedural Eval Section A Date of Service: 08/25/23 Section B Chief Complaint: Abnormal findings on diagnostic imaging of other Details of Present Illness: Has a history of a malignant rectal polyp in 2017; also had CT scan earlier this year showing thickening of the splenic flexure and left colon Relevant Family History (Specify if Yes): No Relevant Social History: None Present Medications: see Short Stay Collaborative assessment Medical History: Significant History ( hypertension) Allergies: Allergies Allergy/AdvReac Type Severity Reaction Status Date / Time penicillin V Allergy Unknown Unknown Verified 07/24/23 13:02 Penicillins [PENICILLINS] Allergy Unknown UNKNOWN Verified 07/24/23 13:02 REACTION, CHILDHOOD ALLERGY Review of Systems Sugical H&P ROS: Negative: Constitution, Cardiovascular, Respiratory, Neurological, Psychiatric, Hem-Onc, Allergic/Immunologic, Gastrointestinal, Genitourinary, Musculoskeletal, Integumentary, Endocrine and Eyes/Ears/Nose/Throat Exam Surgical H&P Exam: Normal: HEENT, Normal: Heart, Normal: Lungs, Normal: Extremities, Normal: Abdomen, Normal: Skin and Normal: Neurological Plan Diagnosis/Plan: Unchanged I have reviewed the history and physical and performed a pertinent physical examination on my patient. No changes have occurred unless specified. Time Spent With Patient Time: Total time managing care of this patient today ____ minutes.
--- NOTE | 2023-08-25 08:03 | HO.ANESPROP2 ---
[facility] Active Problems Active Problems: All Active Problems (Updated 08/25/23 @ 06:46 by Dorothy Velasco RN) Abnormal CT scan, colon (Acute) Past Medical History Medical History Liver cancer Arthritis Colon cancer Lump of scalp High cholesterol Hypertension Family History Family history of problems with anesthesia: No Surgical History Surgical History H/O colonoscopy Status post excision of lipoma Social History Social History Household Members: Other Household Members Other:: nephew Housing: Apartment Are you a primary clinical care manager to a significant other at home: No Do you presently have visiting nurse or other home services: No Alcohol intake: current Alcohol intake frequency: a few times a month Alcohol type: beer and hard liquor Patient Tobacco Use Status: Current someday Tobacco user Tobacco use type: Cigarette Cigarette Packs Per Day: 0 Cigarettes Per Day: 0 Years Smoked: 50 Second Hand Smoke Exposure: No Use of substances other than those prescribed or required for medical reasons: Yes Substance Use Type: Marijuana Substance Use Frequency: Daily Advance Directives: No Advance Directives Information Provided: Yes Advance Directives on File: No Recently lost weight without trying: No Eating poorly because of decreased appetite: No Nutrition Risks: No Nutritional Risk Poor oral hygiene: Yes (missing bottom tooth) service: No Meds Allergies Allergy/AdvReac Type Severity Reaction Status Date / Time penicillin V Allergy Unknown Unknown Verified 07/24/23 13:02 Penicillins [PENICILLINS] Allergy Unknown UNKNOWN Verified 07/24/23 13:02 REACTION, CHILDHOOD ALLERGY Active Medications: Current Medications Lactated Ringer's (Lr) 1,000 mls @ 100 mls/hr IVCONT .Q10H LEONIDES Last Admin: 08/25/23 07:01 Dose: 100 mls/hr Home Medications Medication Instructions Recorded Confirmed Last Taken Type ergocalciferol (vitamin D2) 1,250 1,250 mcg PO THEODORE@0900 03/05/23 08/14/23 02/26/23 History mcg (50,000 unit) capsule hydrochlorothiazide 12.5 mg capsule 12.5 mg PO DAILY 03/05/23 08/14/23 03/05/23 History loratadine 10 mg tablet (Claritin) 10 mg PO DAILY PRN Allergy Symptoms 03/05/23 08/14/23 Unknown History Exam Height,Weight and Vital Signs: Height 5 ft 5 in Weight 69.173 kg Last Vital Signs Temp 97.3 F 08/25/23 06:46 Pulse 61 08/25/23 06:46 Resp 16 08/25/23 06:46 BP 133/75 08/25/23 06:46 Pulse Ox 96 08/25/23 06:46 O2 Del Method Room Air 08/25/23 06:46 Airway Mallampati Class: II TM Dist: >3cm Neck ROM: Full Heart: RRR Lungs: CTA Assessment and Plan Assessment Anesthesia Assessment: Anesthesia Plan Discussed Final Anesthetic Review Family History of Problems with Anesthesia: No NPO: Yes ASA Class: II Final Preanesthetic Review: Meds/Allgs Chart Reviewed, Consent Obtained/Reviewed and Anes Risks/Benef Reviewed Patient Risk: Low Procedure Risk: Low Anesthetic Plan Anesthetic Plan: MAC: Disposition: Standard PACU
--- NOTE | 2023-08-25 08:06 | W.PM.OPN ---
Operative Note Operative Note Date of Service: 08/25/23 Narrative: Preop diagnosis: Abnormal CT scan, history of malignant rectal polyp Postop diagnosis: Normal colonoscopy findings Procedure: Colonoscopy Surgeon: Jordan Syed MD The patient is a 68-year-old male who had a CAT scan earlier this year showing thickening of the flexor on the left colon. he also has a history of a malignant rectal polyp in 2018. I therefore recommended repeating his colonoscopy. I discussed the technique of the procedure as well as the risks, benefits, and alternatives The patient was brought to the operating room and placed in left lateral decubitus position under monitored anesthesia care. A surgical time-out was done. A full digital rectal exam was done and this did not reveal any significant anal lesions. The tip of the Olympus colonoscope was gently introduced through the anal orifice advanced with insufflation all the way to the cecum. The cecum was intubated. The cecum was identified by visualization of the ileocecal valve as well as the appendiceal orifice. The cecal mucosa was unremarkable. The scope was gradually withdrawn with careful examination of the entire colonic mucosa being done with scope withdrawal. The patient had adequate bowel prep so it was unlikely that any lesion may have been missed. There were no lesions seen any abnormal echoes noted in the splenic flexure in left colon.The rectum was reached and there were no lesions seen. The anal canal was unremarkable. The scope was then withdrawn completely with desufflation. The patient tolerated the procedure well. There were no immediate complications. withdrawal time was about 8 minutes. Because of his history of malignant rectal polyp, I would recommend another colonoscopy in 5 years.
[2023-08-25 08:10] VITALS: BP 100/60; PULSE 59; RESP 16; TEMP 36.6; O2SAT 98
--- NOTE | 2023-08-25 08:12 | HO.POSTANES ---
Post Anesthesia Evaluation Post Anesthesia Evaluation Date of Service: 08/25/23 Vital Signs: Vital Signs Temp Pulse Resp BP Pulse Ox O2 Del Method 08/25/23 06:46 97.3 F 61 16 133/75 96 Room Air Anesthesia: Monitored Mental Status: Awake Pain Control: Satisfactory Nausea/Vomiting: None Hydration: Adequate Anesthesia-Related Issues: No Anes. Related Issues
[2023-08-25 08:25] VITALS: BP 105/62; PULSE 56; RESP 16; O2SAT 96
[2023-08-25 08:40] VITALS: BP 127/75; PULSE 54; RESP 16; TEMP 36.5; O2SAT 100
== END 2023-08-25 09:50 | disposition home or self-care (01) ==
PROVIDERS: PCP Internal Medicine; Visit Provider Surgery
PROC: 0DBE8ZZ Excision of Large Intestine, Via Natural or Artificial Opening Endoscopic (ICD-10-PCS; CPT 45378; principal; 2023-08-25 08:30)
DX: R93.3 Abnormal findings on diagnostic imaging of other parts of digestive tract (principal); Z85.048 Personal history of other malignant neoplasm of rectum, rectosigmoid junction, and anus; I10 Essential (primary) hypertension; E78.00 Pure hypercholesterolemia, unspecified; M54.50 Low back pain, unspecified; G89.29 Other chronic pain; M54.2 Cervicalgia; Z79.899 Other long term (current) drug therapy; Z88.0 Allergy status to penicillin; F17.210 Nicotine dependence, cigarettes, uncomplicated; F12.90 Cannabis use, unspecified, uncomplicated
CPT/HCPCS: 45378; J2704

== ENCOUNTER → 2023-08-25 06:22 | Outpatient (BNV) | payer OTHER, SELFPAY | PROVIDERS: PCP Internal Medicine; Visit Provider Surgery | DX: R93.3 Abnormal findings on diagnostic imaging of other parts of digestive tract (principal); Z86.010 Personal history of colon polyps | CPT/HCPCS: 45378 ==

== ENCOUNTER 2023-09-15 10:29 | Outpatient (REF) | payer OTHER, SELFPAY ==
--- NOTE | ~2023-09-15 | US_ITS ---
EXAMINATION: US ABDOMEN COMPLETE CLINICAL INFORMATION: Transaminitis. COMPARISON: CT abdomen and pelvis 03/05/2023. Ultrasound abdomen complete 12/01/2015. TECHNIQUE: Real-time imaging of the abdominal viscera. FINDINGS: PANCREAS: Normal. ABDOMINAL AORTA: The proximal, mid, and distal segments are normal in caliber. INFERIOR VENA CAVA: Visualized portions are normal. LIVER: Normal. The liver is normal in size. The liver contour is normal. Parenchymal echogenicity is normal. No focal hepatic lesion. There is no intrahepatic biliary duct dilatation seen. On the prior ultrasound from 2015, liver echogenicity was considered increased. On the current study liver echogenicity appears normal. GALLBLADDER: Normal. The gallbladder is physiologically distended without evidence of stones, sludge, polyps, wall thickening or pericholecystic fluid. COMMON BILE DUCT: Normal in caliber measuring 0.2 cm in diameter. RIGHT KIDNEY: There is a 1.1 cm simple cyst in the mid right kidney. No follow-up imaging is recommended. No hydronephrosis or renal calculi. The kidney measures 9.2 cm in maximum dimension. LEFT KIDNEY: Normal. No hydronephrosis. No renal calculi or focal parenchymal lesions. The kidney measures 9.3 cm in maximum dimension. SPLEEN: Normal. The spleen measures 6.7 cm in maximum dimension. FREE FLUID: None. US/US abdomen complete IMPRESSION: Normal sonographic appearance of the liver. No biliary ductal dilatation.
== END 2023-09-15 10:30 | disposition home or self-care (01) ==
LOC: HO.US 10:29
PROVIDERS: PCP Internal Medicine; Visit Provider Internal Medicine
DX: R74.01 Elevation of levels of liver transaminase levels (principal)
CPT/HCPCS: 76700

== ENCOUNTER 2024-03-07 08:34 | Outpatient (REF) | payer OTHER, SELFPAY ==
[2024-03-07 12:28] LABS: Alanine Aminotransferase 34 U/L (0-40); Albumin Level 4.3 g/dL (3.5-5.0); Alkaline Phosphatase 49 U/L (39-117); Aspartate Amino Transferase 33 U/L (5-37); Bilirubin Direct 0.2 mg/dL (0.0-0.5); Bilirubin Total 0.5 mg/dL (0.0-1.0); Gamma Glutamyl Transpeptidase 59 U/L (11-51); Total Protein 7.6 g/dL (6.5-8.0)
[2024-03-07 12:40] LABS: Vitamin D 25-OH Total 33.6 ng/mL (>30)
== END 2024-03-07 08:35 | disposition home or self-care (01) ==
LOC: HO.HHCL 08:34
PROVIDERS: Visit Provider Internal Medicine
DX: R74.01 Elevation of levels of liver transaminase levels (principal); E55.9 Vitamin D deficiency, unspecified
CPT/HCPCS: 36415; 80076; 82306; 82977

== ENCOUNTER 2024-12-04 08:03 | Outpatient (REF) | payer OTHER, SELFPAY ==
[2024-12-04 12:09] LABS: Alanine Aminotransferase 40 U/L (0-40); Alkaline Phosphatase 52 U/L (39-117); Anion Gap 10 (12-20); Aspartate Amino Transferase 30 U/L (5-37); Bilirubin Total 0.2 mg/dL (0.0-1.0); Blood Urea Nitrogen 13 mg/dL (9-16); Calcium 9.1 mg/dL (8.4-10.2); Carbon Dioxide 26 mmol/L (22-29); Chloride 108 mmol/L (96-108); Cholesterol 228 mg/dL (<200); Estimated Glomerular Filt Rate > 60; Glucose Random 114 mg/dL (60-115); HDL Cholesterol 39 mg/dL (>40); LDL Cholesterol Calculated 110 mg/dL (<100); Potassium 3.6 mmol/L (3.3-5.1); Sodium 140 mmol/L (135-145); Total Protein 7.6 g/dL (6.5-8.0); Triglycerides 398 mg/dL (<150)
[2024-12-04 12:13] LABS: TSH reflex Free T4 1.54 uIU/mL (0.32-4.0)
[2024-12-04 14:35] LABS: Reflex LDLD? No
[2024-12-13 13:27] LABS: Testosterone, Free 104.3 pg/mL (35.0-155.0); Testosterone, Total 581 ng/dL (250-1100)
== END 2024-12-04 08:04 | disposition home or self-care (01) ==
LOC: HO.HHCL 08:03
PROVIDERS: Visit Provider Internal Medicine
DX: I10 Essential (primary) hypertension (principal); R73.01 Impaired fasting glucose; N52.9 Male erectile dysfunction, unspecified; E78.5 Hyperlipidemia, unspecified
CPT/HCPCS: 36415; 80053; 80061; 84402; 84403; 84443